=== PATIENT | female | born 1965 | race Caucasian/White ===

== ENCOUNTER → 2018-11-11 12:01 | Outpatient (CLI) | payer MEDICARE, OTHER, SELFPAY ==
--- NOTE | 2018-11-11 12:07 | DI.RAD.S_ITS ---
PROCEDURE: XR CERVICAL SPINE 4V OR 5V INDICATIONS: chronic neck pain TECHNIQUE: 5 views of the cervical spine acquired. COMPARISON: None. FINDINGS: Bones: No fractures or dislocations to the C7 level. Diffuse endplate spurring and sclerosis. Mild narrowing of the C4-C5, C5-C6 disc spaces. On the right there is moderate C4-C5 bony foraminal narrowing. On the left no bony foraminal stenosis Soft tissues: Bilateral carotid calcifications IMPRESSION: Mild midcervical degeneration and diffuse facet arthropathy. Moderate right C4-C5 bony foraminal stenosis Bilateral carotid atherosclerosis. Dictated by: Kye Armas M.D. on 11/11/2018 at 13:12 Approved by: Kye Armas M.D. on 11/11/2018 at 13:13
--- NOTE | 2018-11-11 12:25 | DI.CT.S_ITS ---
PROCEDURE: CT CERVICAL SPINE WO CON INDICATIONS: chronic cervical pain TECHNIQUE: Noncontrast 3 mm thick sections acquired from the skull base to the T4 level. Sagittal and coronal reformats were then constructed. For radiation dose reduction, the following was used: automated exposure control, adjustment of mA and/or kV according to patient size. COMPARISON: None. FINDINGS: Image quality: Excellent. Bones: No fractures or dislocations. Visualized superior ribs are intact. Straightening of the normal cervical lordosis. There is endplate spurring which is most pronounced at C5-C6 and C6-C7. Mild narrowing of C5-C6 and C6-C7 disc spaces. Soft tissues: Prevertebral soft tissues are normal in thickness. No paravertebral hematomas. No apical pneumothoraces. Status post left mastoidectomy IMPRESSION: Straightening of the normal cervical lordosis and mild mid to lower cervical disc degeneration primarily from C5-C7. Dictated by: Kye Armas M.D. on 11/11/2018 at 15:08 Approved by: Kye Armas M.D. on 11/11/2018 at 15:11
== END ==
PROVIDERS: PCP Family Medicine; Visit Provider Physical Medicine & Rehabilitation
DX: M50.122 Cervical disc disorder at C5-C6 level with radiculopathy (principal); G89.29 Other chronic pain; Z95.0 Presence of cardiac pacemaker
CPT/HCPCS: 72050; 72125

== ENCOUNTER → 2019-02-21 13:28 | Outpatient (CLI) | payer MEDICARE, OTHER, SELFPAY ==
--- NOTE | 2019-02-21 13:32 | DI.RAD.S_ITS ---
PROCEDURE: XR THORACIC SPINE 2V INDICATIONS: Eval TECHNIQUE: A 2 views of the thoracic spine were acquired. COMPARISON: [facility], CR, XR CERVICAL SPINE 4V OR 5V, 11/11/2018, 12:27. [facility], CT, CT CERVICAL SPINE WO CON, 11/11/2018, 12:11. FINDINGS: Bones: No fractures or dislocations. What appears to be vertebroplasty/kyphoplasty bone cement overlies the T3 and T4 vertebral body segments No suspicious bony lesions. 12 pairs of ribs are noted, and appear intact where visualized. Soft tissues: No paravertebral stripe thickening. IMPRESSION: Apparent prior vertebroplasty/kyphoplasty bone cement placement at the T3 and T4 levels of the thoracic spine. No compression fracture or subluxation is associated. Dictated by: Nikita Argueta M.D. on 02/21/2019 at 14:20 Approved by: Nikita Argueta M.D. on 02/21/2019 at 14:23
== END ==
PROVIDERS: PCP Family Medicine; Visit Provider Physical Medicine & Rehabilitation
DX: S22.049A Unspecified fracture of fourth thoracic vertebra, initial encounter for closed fracture (principal); S22.039A Unspecified fracture of third thoracic vertebra, initial encounter for closed fracture
CPT/HCPCS: 72070; 99214

== ENCOUNTER 2019-03-08 11:17 | Outpatient (CLI) | payer MEDICARE, OTHER, SELFPAY ==
[2019-03-08] VITALS (9 sets, daily range): BP systolic 102–118; BP diastolic 57–75; PULSE 58–73; RESP 16–18; TEMP 36.1; O2SAT 98–100
--- NOTE | 2019-03-08 11:20 | DI.RAD.S_ITS ---
PROCEDURE: PAIN C/T INTERLAMINAR INJECT INDICATIONS: RADICULOPATHY FINDINGS: Fluoroscopic spot filming was performed to verify placement of spinal needles at the T4-T5 level(s), as labeled on the films. Appropriate location(s) of the needle tip(s) was confirmed by injection of iodinated contrast. Dictated by: Kye Armas M.D. on 03/08/2019 at 13:27 Approved by: Kye Armas M.D. on 03/08/2019 at 13:28
[2019-03-08] MEDS: fentaNYL 100 MCG/2 ML INJ 50 MCG IV (12:17)
[2019-03-08] MEDS: MIDAZOLAM 5 MG/5 ML VIAL IV (12:17)
[2019-03-08] MEDS: LIDOCAINE 1% 20 ML INJ 5 ML INJ (12:25)
[2019-03-08] MEDS: DEXAMETHASONE 10 MG/ML VIAL 20 MG INJ (12:26)
[2019-03-08] MEDS: IOPAMIDOL 15 ML VIAL 3 ML INJ (12:26)
--- NOTE | 2019-03-08 12:31 | PC.NURSE ---
ASSISTING PT OFF TABLE AND TRANSPORTING TO POST PROC AREA IN STABLE CONDITION
--- NOTE | 2019-03-08 12:40 | P.PCN_ITS ---
Procedures Date/Time Date of procedure: 03/08/19 Time of procedure: 12:37 General Procedure description: Preop diagnosis: Thoracic stenosis with HNP Postprocedure diagnosis: Thoracic stenosis with HNP Physician: Darian Washburn D.O. Indications: Amanda is referred by for treatment of thoracic DDD/DJD with radiculopathy Description of procedure: Fluoroscopic guided, contrast controlled T4/5 translaminar epidural steroid inj ection with conscious sedation. Following denial of allergy review potential side effects and complications, including, but not necessarily limited to, infection, allergic reaction, local tissue breakdown, temporary as well as permanent nerve injury, stroke, paralysis and possible , the patient indicated that they understood and agreed to proceed. An informed consent document was signed by the patient, witnessed by the nurse, and placed in the patient's chart. Additionally other treatment options including modalities, medications and physical therapy were reviewed with the patient. After review of previous anaesthesic history and IV conscious sedation the patient was deemed safe to proceed with todays procedure with IV conscious sedation as ASA class II designation. Safety time-out was performed to confirm patient ID, procedure to be performed and site of procedure. IV sedation was accomplished with a combination of 3mg of Versed administered by the RN after DO order, titrated to patient comfort during the course of the procedure while the patient remained responsive to all verbal commands In the prone position, following sterile prep and drape of the thoracic region the T4/5 translaminar space was identified fluoroscopically. The skin was anesthetized via 25 gauge 20 mm sheath with 1% lidocaine solution. At this point a 20 gauge epidural needle was atraumatically introduced and advanced under fluoroscopic guidance into the region of the T8-9 translaminar space depth was confirmed on lateral view. Radiographic data, including multiple fluoroscopic views of the thoracic spine, reveals spinal needle at the T4/5 translaminar space. Lateral views then showed the placement of the needle in the epidural space. Subsequent view show contrast material flowing superiorly and inferiorly in the epidural space. No vascular or intrathecal uptake is observed. At this point using loss of resistance technique with saline and the epidural space was entered. This was confirmed followed negative aspiration and injection of approximately 1.5 cc of Isovue 200 showed excellent epidural flow without vascular or intrathecal uptake. At this point, 1 cc of 1% lidocaine s olution was admitted as a test dose and the patient was observed for an appropriate period of time without signs or symptoms of complications, including abdominal pain, shortness of breath, bilateral upper and lower extremity weakness, nausea and vomiting, prior to steroid injection. Subsequently, 2cc or 20mg of dexamethasone was then injected without incident. The patient tolerated the procedure well without signs of complications and subsequently was transferred to the recovery room for further monitoring. The patient was then transferred to the recovery area with their observed for an appropriate time after the injection. Patient reported a VAS score of 7 prior to the procedure and postprocedure VAS of 2. Total fluoroscopy time: 56.3 sec Total conscious sedation time: 24 min Darian Washburn D.O. Complications: none
--- NOTE | 2019-03-08 13:55 | PC.NURSE ---
Pt returned from procedure via wheelchair awake and alert, able to move from w/c to chair with standby assist. Resumed monitoring from Yun SAUCEDO.
== END 2019-03-08 13:10 ==
PROVIDERS: PCP Family Medicine; Visit Provider Physical Medicine & Rehabilitation
DX: M48.04 Spinal stenosis, thoracic region (principal); M51.14 Intervertebral disc disorders with radiculopathy, thoracic region
CPT/HCPCS: 62321; 99152; J1100; J2250; J3010

== ENCOUNTER 2019-03-31 08:16 | Outpatient (CLI) | payer MEDICARE, OTHER, SELFPAY ==
[2019-03-31] VITALS (9 sets, daily range): BP systolic 96–114; BP diastolic 60–71; PULSE 56–87; RESP 16–18; TEMP 36.1; O2SAT 96–100
--- NOTE | 2019-03-31 08:19 | DI.RAD.S_ITS ---
PROCEDURE: PAIN C/T FACET INJ/BLK 1ST L INDICATIONS: [id number] FINDINGS: Fluoroscopic spot filming was performed to verify placement of spinal needles at the right C4-C5, C5-C6 and C6-C7 level(s), as labeled on the films. Appropriate location(s) of the needle tip(s) was confirmed by injection of iodinated contrast. IMPRESSION: Fluoroscopy for pain management. Dictated by: Mayda Moser M.D. on 03/31/2019 at 15:23 Approved by: Mayda Moser M.D. on 03/31/2019 at 15:23
[2019-03-31] MEDS: fentaNYL 100 MCG/2 ML INJ 50 MCG IV (09:23)
[2019-03-31] MEDS: MIDAZOLAM 5 MG/5 ML VIAL IV (09:23)
[2019-03-31] MEDS: LIDOCAINE 1% 20 ML INJ 5 ML INJ (09:32)
[2019-03-31] MEDS: IOPAMIDOL 15 ML VIAL 3 ML INJ (09:32)
[2019-03-31] MEDS: BUPIVACAINE 0.5% (PF) VIAL 2 ML INJ (09:33)
[2019-03-31] MEDS: DEXAMETHASONE 10 MG/ML VIAL 30 MG INJ (09:33)
--- NOTE | 2019-03-31 09:41 | P.PCN_ITS ---
Procedures Date/Time Date of procedure: 03/31/19 Time of procedure: 09:40 General Procedure description: PREOP DIAGNOSIS 1. FACET ARTHROPATHY 2. AXIAL NECK PAIN POST OP DIAGNOSIS 1. FACET ARTHROPATHY 2. AXIAL NECK PAIN PROCEDURES 1. FLUOROSCOPICALLY GUIDED, CONTRAST-CONTROLLED RIGHT C4/5, C5/6 AND C6/7 FACET JOINT INJECTIONS WITH CONSCIOUS SEDATION. PHYSICIAN: Darian Washburn, INDICATIONS Amanda is referred by Dr. Toth for treatment of Axial Neck Pain DESCRIPTION OF PROCEDURE Fluoroscopically guided, contrast-controlled right C4/5, C5/6 and C6/7 facet joint injections with conscious sedation. Following denial of allergy and review of potential side effects and complications, including, but not necessarily limited to, infection, allergic reaction, local tissue breakdown, stroke, temporary or permanent nerve injury and paralysis, the patient indicated that the patient understood and agreed to proceed. An informed consent document was signed by the patient, witnessed by a nurse, and placed in the patient's chart. Additionally, other treatment options including medications, modalities, and physical therapy were reviewed with the patient. After review of previous anaesthesic history and IV conscious sedation the patient was deemed safe to proceed with todays procedure with IV conscious sedation as ASA class II designation. Safety time-out was performed to confirm patient ID, procedure to be performed and site of procedure. IV sedation was accomplished with a combination of 3mg of Versed and 50mcg of Fentanyl was administered by the RN after DO order, titrated to patient comfort during the course of the procedure while the patient remained responsive to all verbal commands In the prone position, following sterile prep and drape of the cervical spine region, the posterior aspect of the right C4/5, C5/6 and C6/7 facet joints were identified fluoroscopically. The skin was anesthetized via a 25-gauge 1.5-inch needle with 1% lidocaine solution into the corresponding facet joints. At this point, a 25-gauge 2.5-inch spinal needle was atraumatically introduced and advanced under fluoroscopic guidance into the corresponding facet joints. Following negative aspiration, injections of approximately 0.2-cc of Isovue 200 confirmed interarticular placement without vascular uptake. At this point, a total of 1 cc including 0.5 cc or 5mg of dexamethasone combined with 0.5 cc of 1% lidocaine solution was injected without complication into each of the corresponding facet joints. The procedure tolerated the procedure well without signs or symptoms of complications prior to transfer to the recovery area continued monitoring without incident. The patient was then transferred to the recovery area where they were observed for an appropriate period of time after the injection. The patient reported a VAS score of 7 prior to the procedure and a post- procedure VAS of 0. Total Fluoroscopy Time: 20.5 seconds Total Conscious Sedation Time: 24 min POST OP INSTRUCTIONS They were provided a Pain Log to continue to record their response to the target-specific procedure prior to their follow-up visit with their referring physician. Additionally, specific post-injection care instructions and a contact number to our office were provided if concerns arise regarding possible complications associated with the procedure are suspected. Darian Washburn, Complications: none
--- NOTE | 2019-03-31 09:44 | PC.NURSE ---
pt returned from procedure awake and alert, able to move from w/c to chair with standby assist. Resumed monitoring from Yun SAUCEDO.
== END 2019-03-31 10:11 | disposition home or self-care (01) ==
LOC: RAD 08:18
PROVIDERS: PCP Family Medicine; Visit Provider Physical Medicine & Rehabilitation
DX: M47.812 Spondylosis without myelopathy or radiculopathy, cervical region (principal); M54.2 Cervicalgia
CPT/HCPCS: 64490; 64491; 64492; 99152; J1100; J2250; J3010

== ENCOUNTER 2019-06-16 11:52 | Outpatient (CLI) | payer MEDICARE, OTHER, SELFPAY ==
[2019-06-16] VITALS (8 sets, daily range): BP systolic 99–119; BP diastolic 63–83; PULSE 61–82; RESP 16–18; TEMP 36.2; O2SAT 98–100
--- NOTE | 2019-06-16 11:56 | DI.RAD.S_ITS ---
PROCEDURE: PAIN C/T FACET INJ/BLK 1ST L INDICATIONS: SPONDYLOSIS FINDINGS: Fluoroscopic spot filming was performed to verify placement of spinal needles at the C3-4, T4-T5 right sided facet joint areas level(s), as labeled on the films. Appropriate location(s) of the needle tip(s) was confirmed by injection of iodinated contrast. IMPRESSION: Unilateral right-sided facet joint injections at T3-4 and T4-5. Dictated by: Nikita Argueta M.D. on 06/20/2019 at 15:41 Approved by: Nikita Argueta M.D. on 06/20/2019 at 15:42
[2019-06-16] MEDS: MIDAZOLAM 5 MG/5 ML VIAL IV (13:38)
[2019-06-16] MEDS: fentaNYL 100 MCG/2 ML INJ 50 MCG IV (13:38)
--- NOTE | 2019-06-16 13:40 | P.PCN_ITS ---
Procedures Date/Time Date of procedure: 06/16/19 Time of procedure: 13:36 General Procedure description: PREOP DIAGNOSIS 1. FACET ARTHROPATHY, 2. AXIAL LBP, 3. MULTILEVEL DDD, POST OP DIAGNOSIS 1. FACET ARTHROPATHY, 2. AXIAL LBP, 3. MULTILEVEL DDD, PROCEDURES 1. FLUORSCOPICALLY GUIDED CONTRAST CONTROLLED FACET JOINT INJECTIONS RIGHT L3/4, L4/5 SURGEON: Darian Washburn, DO INDICATIONS Amanda is referred by Dr. Toth for treatment of Axial LBP FINDINGS Multilevel Facet Arthropathy with Clinically significant axial LBP DESCRIPTION OF PROCEDURE Fluoroscopically guided, contrast-controlled right T3/4, T4/5 facet joint i njections. Following review of allergy and review of potential side effects and complications, including, but not necessarily limited to, infection, allergic reaction, local tissue breakdown, stroke, temporary or permanent nerve injury, paralysis, and possible , the patient indicated that the patient understood and agreed to proceed. An informed consent document was signed by the patient, witnessed by a nurse, and placed in the patient's chart. Additionally, other treatment options including medications, modalities, and physical therapy were reviewed with the patient. After review of previous anaesthesic history and IV conscious sedation the patient was deemed safe to proceed with todays procedure with IV conscious sedation as ASA class II designation. Safety time-out was performed to confirm patient ID, procedure to be performed and site of procedure. IV sedation was accomplished with a combination of 2mg of Versed and 50mcg of Fentanyl administered by the RN after DO order, titrated to patient comfort during the course of the procedure while the patient remained responsive to all verbal commands. In the prone position, following sterile prep and drape of the lumbar region, the posterior aspect of the right T3/4, T4/5 facet joints were identified fluoroscopically. The skin was anesthetized via a 25-gauge 1.5-inch needle with 1% lidocaine solution into the corresponding facet joints. At this point, a 22-gauge 3.5-inch spinal needle was atraumatically introduced and advanced under fluoroscopic guidance into the corresponding facet joints. Following negative aspiration, injections of approximately 0.2-cc of Isovue 200 confirmed interarticular placement without vascular uptake. Radiological data, including multiple fluoroscopic views of the lumbosacral s pine, reveal a spinal needle at the right T3/4, T4/5 facet joints. Subsequent views show flow of contrast material both superiorly and inferiorly within the joint space without vascular or intrathecal uptake. At this point, a total of 0.cc including a mixture of 0.25cc Marcaine and 0.25cc betamethasone was injected without complication into each of the corresponding facet joints. The patient tolerated the procedure well without signs or symptoms of complications prior to transfer to the recovery area for further monitoring. The patient was then transferred to the recovery area where they were observed for an appropriate period of time after the injection. The patient reported a VAS score of 7 prior to the procedure and a post-procedure VAS of 0. Total Fluoroscopy Time: 12.7 seconds Total Conscious Sedation Time: 24min POST OP INSTRUCTIONS The patient was provided a Pain Log to continue to record their response to the target-specific procedure prior to follow-up visit with their referring physician. Additionally, specific post-injection care instructions and a contact number to our office were provided if concerns arise regarding possible complications associated with the procedure are suspected Complications: none
[2019-06-16] MEDS: LIDOCAINE 1% 20 ML 10 ML INJ (13:45)
[2019-06-16] MEDS: BUPIVACAINE 0.5% (PF) VIAL 5 ML INJ (13:45)
[2019-06-16] MEDS: IOPAMIDOL 15 ML VIAL 3 ML INJ (13:45)
[2019-06-16] MEDS: DEXAMETHASONE 10 MG/ML VIAL 20 MG INJ (13:46)
[2019-06-16] MEDS: DEXAMETHASONE 10 MG/ML VIAL INJ (13:46)
--- NOTE | 2019-06-16 13:58 | PC.NURSE ---
Pt tolerated procedure well. Pt able to get off the table with standby assist. Transferred pt to pre procedure room via wheelchair for continued monitoring with Yun SAUCEDO.
--- NOTE | 2019-06-16 14:06 | PC.NURSE ---
ACCEPTED CARE OF PT IN POST PROC AREA IN STABLE CONDITION
--- NOTE | 2019-06-16 14:39 | PM.PROC.1 ---
Procedures Date/Time Date of procedure: 06/16/19 Time of procedure: 14:39
== END 2019-06-16 14:34 | disposition home or self-care (01) ==
LOC: RAD 11:55
PROVIDERS: PCP Family Medicine; Visit Provider Physical Medicine & Rehabilitation
DX: M47.814 Spondylosis without myelopathy or radiculopathy, thoracic region (principal)
CPT/HCPCS: 64490; 99152; J1100; J2250; J3010

== ENCOUNTER 2019-09-27 06:42 | Outpatient (CLI) | payer MEDICARE, OTHER, SELFPAY ==
[2019-09-27] VITALS (8 sets, daily range): BP systolic 95–120; BP diastolic 69–79; PULSE 65–74; RESP 16; TEMP 36.2; O2SAT 95–99
--- NOTE | 2019-09-27 06:45 | DI.RAD.S_ITS ---
PROCEDURE: PAIN C/T FACET INJ/BLK 1ST L INDICATIONS: SPONDYLOSIS FINDINGS: Fluoroscopic spot filming was performed to verify placement of spinal needles at the right T3-T4, and T4-T5 facet regions for steroid injection level(s), as labeled on the films. Appropriate location(s) of the needle tip(s) was confirmed by injection of iodinated contrast. IMPRESSION: Successful facet joint localization at the right side of the thoracic spine for steroid injection. Dictated by: Nikita Argueta M.D. on 09/27/2019 at 10:21 Approved by: Nikita Argueta M.D. on 09/27/2019 at 10:21
[2019-09-27] MEDS: fentaNYL 100 MCG/2 ML INJ 50 MCG IV (08:10)
[2019-09-27] MEDS: MIDAZOLAM 5 MG/5 ML VIAL IV (08:10)
[2019-09-27] MEDS: DEXAMETHASONE 10 MG/ML VIAL INJ (08:20)
[2019-09-27] MEDS: LIDOCAINE 1% 20 ML 10 ML INJ (08:20)
[2019-09-27] MEDS: IOPAMIDOL 15 ML VIAL 3 ML INJ (08:20)
[2019-09-27] MEDS: methylPREDNISolone acetate 80 MG/ML VIAL INJ (08:20)
[2019-09-27] MEDS: BUPIVACAINE 0.5% (PF) VIAL 2 ML INJ (08:20)
--- NOTE | 2019-09-27 08:22 | PC.NURSE ---
ASSISTING PT OFF TABLE AND TRANSPORTING TO POST PROC AREA IN STABLE CONDITION. PASSING PT CARE OFF TO NEVIN Petersen RN.
--- NOTE | 2019-09-27 08:27 | P.PCN_ITS ---
Procedures Date/Time Date of procedure: 09/27/19 Time of procedure: 08:27 General Procedure description: General Procedure description: PREOP DIAGNOSIS 1. FACET ARTHROPATHY, 2. AXIAL THORACIC PAIN, 3. MULTILEVEL DDD, POST OP DIAGNOSIS 1. FACET ARTHROPATHY, 2. AXIAL THORACIC PAIN, 3. MULTILEVEL DDD, PROCEDURES 1. FLUORSCOPICALLY GUIDED CONTRAST CONTROLLED FACET JOINT INJECTIONS RIGHT T3/4, T4/5 SURGEON: Darian Washburn, DO INDICATIONS Amanda is referred by Dr. Toth for treatment of Axial LBP FINDINGS Multilevel Facet Arthropathy with Clinically significant axial LBP DESCRIPTION OF PROCEDURE Fluoroscopically guided, contrast-controlled right T3/4, T4/5 facet joint injections. Following review of allergy and review of potential side effects and complications, including, but not necessarily limited to, infection, allergic reaction, local tissue breakdown, stroke, temporary or permanent nerve injury, paralysis, and possible , the patient indicated that the patient understood and agreed to proceed. An informed consent document was signed by the patient, witnessed by a nurse, and placed in the patient's chart. Additionally, other treatment options including medications, modalities, and physical therapy were reviewed with the patient. After review of previous anaesthesic history and IV conscious sedation the patient was deemed safe to proceed with todays procedure with IV conscious sedation as ASA class II designation. Safety time-out was performed to confirm patient ID, procedure to be performed and site of procedure. IV sedation was accomplished with a combination of 3mg of Versed and 50mcg of Fentanyl administered by the RN after DO order, titrated to patient comfort during the course of the procedure while the patient remained responsive to all verbal commands. In the prone position, following sterile prep and drape of the lumbar region, the posterior aspect of the right T3/4, T4/5 facet joints were identified fluoroscopically. The skin was anesthetized via a 25-gauge 1.5-inch needle with 1% lidocaine solution into the corresponding facet joints. At this point, a 22-gauge 3.5-inch spinal needle was atraumatically introduced and advanced under fluoroscopic guidance into the corresponding facet joints. Following negative aspiration, injections of approximately 0.2-cc of Isovue 200 confirmed interarticular placement without vascular uptake. Radiological data, including multiple fluoroscopic views of the lumbosacral spine, reveal a spinal needle at the right T3/4, T4/5 facet joints. Subsequent views show flow of contrast material both superiorly and inferiorly within the joint space without vascular or intrathecal uptake. At this point, a total of 0.5cc including a mixture of 0.25cc Marcaine and 0.25cc depomedrol was injected without complication into each of the co rresponding facet joints. The patient tolerated the procedure well without signs or symptoms of complications prior to transfer to the recovery area for further monitoring. The patient was then transferred to the recovery area where they were observed for an appropriate period of time after the injection. The patient reported a VAS score of 7 prior to the procedure and a post-procedure VAS of 0. Total Fluoroscopy Time: 12.7 seconds Total Conscious Sedation Time: 24min POST OP INSTRUCTIONS The patient was provided a Pain Log to continue to record their response to the target-specific procedure prior to follow-up visit with their referring physician. Additionally, specific post-injection care instructions and a contact number to our office were provided if concerns arise regarding possible complications associated with the procedure are suspected Complications: none Complications: none
--- NOTE | 2019-09-27 17:28 | PC.NURSE ---
Late entry: post procedure note- Patient arrived at 0830. Awake and alert. Hand off report received from Dior Vergara RN. Transferred to recliner from w/c with minimal assist. VSS, O2 Sats WNL on RA. Pain level 0/10. Discharged to home at 0850
== END 2019-09-27 08:50 | disposition home or self-care (01) ==
PROVIDERS: PCP Family Medicine; Visit Provider Physical Medicine & Rehabilitation
DX: M47.814 Spondylosis without myelopathy or radiculopathy, thoracic region (principal); M51.34 Other intervertebral disc degeneration, thoracic region
CPT/HCPCS: 64490; 64491; 99152; J1040; J1100; J2250; J3010

== ENCOUNTER 2020-01-02 10:09 | Outpatient (CLI) | payer MEDICARE, OTHER, SELFPAY ==
[2020-01-02] VITALS (9 sets, daily range): BP systolic 117–150; BP diastolic 69–91; PULSE 93–109; RESP 16–18; TEMP 36; O2SAT 98–100
--- NOTE | 2020-01-02 10:11 | DI.RAD.S_ITS ---
PROCEDURE: PAIN C/T FACET INJ/BLK 1ST L INDICATIONS: SPONDYLOSIS FINDINGS: Fluoroscopic spot filming was performed to verify placement of spinal needles at the T3, T4, T5 level(s), as labeled on the films. Appropriate location(s) of the needle tip(s) was confirmed by injection of iodinated contrast. Dictated by: Kye Armas M.D. on 01/02/2020 at 13:51 Approved by: Kye Armas M.D. on 01/02/2020 at 13:51
[2020-01-02] MEDS: BUPIVACAINE 0.5% (PF) VIAL 2 ML INJ (11:37)
[2020-01-02] MEDS: fentaNYL 100 MCG/2 ML INJ 50 MCG IV (11:37)
[2020-01-02] MEDS: MIDAZOLAM 5 MG/5 ML VIAL IV (11:37)
[2020-01-02] MEDS: DEXAMETHASONE 10 MG/ML VIAL 20 MG INJ (11:40)
[2020-01-02] MEDS: IOPAMIDOL 15 ML VIAL 3 ML INJ (11:40)
--- NOTE | 2020-01-02 11:41 | PC.NURSE ---
ASSISTING PT OFF TABLE AND TRANSPORTING TO POST PROC AREA IN STABLE CONDITION. PASSING RN CARE OF PT OFF TO BETO Treviño RN.
--- NOTE | 2020-01-02 11:43 | P.PCN_ITS ---
Procedures Date/Time Date of procedure: 01/02/20 Time of procedure: 11:43 General Procedure description: PREOP DIAGNOSIS 1. FACET ARTHROPATHY 2. AXIAL NECK PAIN POST OP DIAGNOSIS 1. FACET ARTHROPATHY 2. AXIAL NECK PAIN PROCEDURES 1. FLUOROSCOPICALLY GUIDED, CONTRAST-CONTROLLED RIGHT T3, T4, and T5 MBB. PHYSICIAN: Darian Washburn, DO INDICATIONS Amanda is referred by Dr. Toth for treatment of Thoracic Pain s/p Fx DESCRIPTION OF PROCEDURE Fluoroscopically guided, contrast-controlled right T3, T4, and T5 Diagnostic Medial Branch Blocks. Following review of allergy and review of potential side effects and complications, including, but not necessarily limited to, infection, allergic reaction, local tissue breakdown, stroke, temporary or permanent nerve injury and paralysis, the patient indicated that the patient understood and agreed to proceed. An informed consent document was signed by the patient, witnessed by a nurse, and placed in the patient's chart. Additionally, other treatment options including medications, modalities, and physical therapy were reviewed with the patient. After review of previous anaesthesic history and IV conscious sedation the patient was deemed safe to proceed with todays procedure with IV conscious sedation as ASA class II designation. Safety time-out was performed to confirm patient ID, procedure to be performed and site of procedure. IV sedation was accomplished with a combination of 3mg of Versed and 50mcg of Fentanyl was administered by the RN after DO order, titrated to patient comfort during the course of the procedure while the patient remained responsive to all verbal commands Time-out was taken to identify the correct patient, procedure and side prior to starting the procedure. Lying in the prone position, the patient was prepped and draped in the usual sterile fashion using Chlorhexaidine scrub and a fenestrated drape. The level was determined under fluoroscopy. The skin was anesthetized via a 25-gauge 1.5- inch needle with 1% lidocaine solution into the corresponding right T3, T4, and T5 lateral pillars. At this point, a 22-gauge short bevel spinal needle was atraumatically introduced and advanced under fluoroscopic guidance to the anatomical pillars. Following negative aspiration, injections of approximately 0.1cc of Isovue 200 confirmed interarticular placement without vascular uptake. At this point, a total of 1cc of 0.5% was injected without complication into each of the corresponding medial branch anatomical location. The patient tolerated the procedure well without signs or symptoms of complications prior to transfer to the recovery area continued monitoring without incident. The patient was then transferred to the recovery area where they were observed for an appropriate period of time after the injection. The patient reported a VAS score of 7 prior to the procedure and a post- procedure VAS of 1. Total Fluoroscopy Time: 9 seconds Total Conscious Sedation Time: 24 min POST OP INSTRUCTIONS They were provided a Pain Log to continue to record their response to the target-specific procedure prior to their follow-up visit with their referring physician. Additionally, specific post-injection care instructions and a contact number to our office were provided if concerns arise regarding possible complications associated with the procedure are suspected. Complications: none
--- NOTE | 2020-01-02 11:52 | PC.NURSE ---
1150: Received patient post procedure via WC by Yun SAUCEDO. Awake and pleasant, at side. VSS upon arrival.
--- NOTE | 2020-01-02 16:45 | PC.NURSE ---
DR RODRIGUEZ AWARE OF TACHYCARDIA AT TIME OF END OF PROCEDURE. NO NEW ORDERS. WILL CONTINUE TO MONITOR.
--- NOTE | 2020-01-03 12:11 | PC.NURSE ---
FOLLOW UP CALL MADE. PT STATED I'M FINE. DENIED QUESTIONS/CONCERNS. REMINDED PT TO CONTINUE WITH PAIN LOG AND OF CLINIC NUMBER OF BACK IF SHE NEEDS TO CONTACT US BEFORE HER FOLLOW UP. PT VERBALIZED UNDERSTANDING.
== END 2020-01-02 12:05 | disposition home or self-care (01) ==
LOC: RAD 10:11
PROVIDERS: PCP Family Medicine; Referring Provider Physical Medicine & Rehabilitation; Visit Provider Physical Medicine & Rehabilitation
DX: M47.814 Spondylosis without myelopathy or radiculopathy, thoracic region (principal); M54.6 Pain in thoracic spine; M54.2 Cervicalgia
CPT/HCPCS: 64490; 64491; 99152; J1100; J2250; J3010

== ENCOUNTER → 2020-09-06 15:49 | Outpatient (CLI) | payer MEDICARE, OTHER, SELFPAY ==
[2020-09-06 16:32] LABS: Add Manual Diff / Slide Review NO; Basophils Absolute Auto 100 /uL (0-100); Eosinophils Absolute Auto 100 /uL (0-450); Hematocrit 38.3 % (36-46); Hemoglobin 12.7 g/dL (12.0-16.0); Lymphocytes Absolute Auto 2800 /uL (1100-4500); Mean Corpuscular HGB Conc 33.1 % (30-36); Mean Corpuscular Hemoglobin 28.8 PG (26-34); Mean Corpuscular Volume 87.1 fL (80-100); Monocytes Absolute Auto 600 /uL (0-900); Monocytes Percent Auto 7.2 % (3-14); Neutrophils Absolute Auto 5200 /uL (1500-7000); Neutrophils Percent Auto 58.8 % (50-75); Platelet Count 219 X10^3/uL (150-400); Red Cell Distribution Width 14.1 % (11.6-14.8); White Blood Cell Count 8.8 X10^3/uL (4.5-11.0)
[2020-09-06 17:01] LABS: BUN Creatinine Ratio 23.6 (6-22); Blood Urea Nitrogen 21 mg/dL (7-17); Calcium 9.6 mg/dL (8.4-10.2); Carbon Dioxide 27 mmol/L (22-32); Chloride 108 mmol/L (98-107); Cholesterol 147 mg/dL (140-199); Estimated Glomerular Filt Rate > 60.0 mL/min (>60); Glucose 108 mg/dL (70-100); HDL Cholesterol 57 mg/dL (40-60); HEMOLYSIS < 15 (0-50); LDL Cholesterol Calculated 61 mg/dL (<100); Potassium 3.9 mmol/L (3.4-5.1); Sodium 139 mmol/L (137-145); Triglycerides 145 mg/dL (35-150)
== END ==
PROVIDERS: PCP Family Medicine; Referring Provider Internal Medicine Cardiovascular Disease; Visit Provider Internal Medicine Cardiovascular Disease
DX: I47.1 Supraventricular tachycardia (principal); E78.5 Hyperlipidemia, unspecified
CPT/HCPCS: 36415; 80048; 80061; 85025

== ENCOUNTER → 2020-11-23 11:02 | Outpatient (CLI) | payer MEDICARE, OTHER, SELFPAY ==
--- NOTE | 2020-11-23 11:06 | DI.RAD.S_ITS ---
PROCEDURE: XR THORACIC SPINE 3V INDICATIONS: updating imaging TECHNIQUE: 3 views of the thoracic spine were acquired. COMPARISON: [facility], CR, XR THORACIC SPINE 2V, 02/21/2019, 13:37. FINDINGS: Bones: No fractures or dislocations. No suspicious bony lesions. 12 pairs of ribs are noted, and appear intact where visualized. Mild multilevel disc degeneration, most notably involving the lower cervical spine. Prior kyphoplasty at the T3 and T4 levels redemonstrated. Soft tissues: No paravertebral stripe thickening. Right cardiac pacer again noted. Cholecystectomy clips. IMPRESSION: 1. Multilevel disc degeneration, most notably involving the lower cervical spine. 2. Prior kyphoplasty at the T3-T4 level. Dictated by: Seymour Zapata [facility] Interpreted: Angel Calle MD on 11/23/2020 at 11:32 Approved by: Angel Calle M.D. on 11/23/2020 at 12:08
== END ==
PROVIDERS: PCP Family Medicine; Referring Provider Physical Medicine & Rehabilitation; Visit Provider Physical Medicine & Rehabilitation
DX: M47.814 Spondylosis without myelopathy or radiculopathy, thoracic region (principal); M50.323 Other cervical disc degeneration at C6-C7 level
CPT/HCPCS: 72072

== ENCOUNTER → 2020-12-11 12:09 | Outpatient (CLI) | payer MEDICARE, OTHER, SELFPAY ==
[2020-12-11 14:44] LABS: COVID19 -Nasal RAPID Negative (Negative)
== END ==
PROVIDERS: PCP Family Medicine; Visit Provider Physical Medicine & Rehabilitation
DX: Z20.822 Contact with and (suspected) exposure to COVID-19 (principal)
CPT/HCPCS: 87635; C9803

== ENCOUNTER 2020-12-13 10:03 | Outpatient (CLI) | payer MEDICARE, OTHER, SELFPAY ==
[2020-12-13] VITALS (8 sets, daily range): BP systolic 102–129; BP diastolic 55–71; PULSE 69–80; RESP 12–22; TEMP 37.3; O2SAT 98–100
--- NOTE | 2020-12-13 10:05 | DI.RAD.S_ITS ---
PROCEDURE: PAIN C/T FACET INJ/BLK 1ST L INDICATIONS: SPONDYLOSIS COMPARISON: [facility], , PAIN C/T FACET INJ/BLK 1ST L, 01/02/2020, 10:34. FINDINGS: Fluoroscopic spot filming was performed to verify placement of spinal needles at the T3, T4, and T5 level(s), as labeled on the films. Appropriate location(s) of the needle tip(s) was confirmed by injection of iodinated contrast. IMPRESSION: Intraprocedural examination within normal limits. Dictated by: Beltran Beard M.D. on 12/13/2020 at 12:33 Approved by: Beltran Beard M.D. on 12/13/2020 at 12:33
[2020-12-13] MEDS: MIDAZOLAM 5 MG/5 ML VIAL IV (10:52)
[2020-12-13] MEDS: fentaNYL 100 MCG/2 ML INJ 50 MCG IV (10:52)
[2020-12-13] MEDS: BUPIVACAINE 0.5% (PF) VIAL 5 ML INJ (10:56)
[2020-12-13] MEDS: LIDOCAINE 1% 20 ML 5 ML INJ (10:56)
[2020-12-13] MEDS: IOPAMIDOL 15 ML VIAL 3 ML INJ (10:56)
--- NOTE | 2020-12-13 11:09 | PM.PROC.IR.1 ---
Date/Time/Diagnoses Date of procedure: 12/13/20 Time of procedure: 11:10 Pre-procedure diagnosis: 1. FACET ARTHROPATHY Post-procedure diagnosis: same Procedure Notes Procedure: 1. Right T3, T4 and T5 MB BLOCKS Indications: Amanda is referred by Joan for treatment of Right Thoracic Back Pain s/p Kyphoplasty. Physician: Darian Washburn Total Fluoroscopy time (seconds): 10 Total sedation minutes: 12 Complications: none Procedure in detail & Post-procedure care: DESCRIPTION OF PROCEDURE Fluoroscopically guided, contrast-controlled right T3, T4 and T5 medial branch blocks with 0.5cc of 0.5% Marcaine. Following review of allergy and review of potential side effects and complications, including, but not necessarily limited to, infection, allergic reaction, local tissue breakdown, nerve injury, paralysis, stroke and possible , the patient indicated that the patient understood and agreed to proceed. An informed consent document was signed by the patient, witnessed by a nurse, and placed in the patient's chart. After review of previous anaesthesic history and IV conscious sedation the patient was deemed safe to proceed with today?s procedure with IV conscious sedation as ASA class II designation. Safety time-out was performed to confirm patient ID, procedure to be performed and site of procedure. IV sedation was accomplished with a combination of 3mg of Versed and 50mcg of Fentanyl was administered by the RN after DO order, titrated to patient comfort during the course of the procedure while the patient remained responsive to all verbal commands In the prone position, following sterile prep and drape of the lumbar region, the right T3, T4 and T5 anatomical location of the medial branch of the dorsal ramus was identified fluoroscopically. Subsequently an anesthetic skin wheal using 1% lidocaine solution was initiated at each of the anatomical spots. Subsequently then a 22-gauge 3.5-inch spinal needle was atraumatically introduced and advanced under fluoroscopic guidance at each of the corresponding sites at the right T3, T4 and T5 MB. After negative aspiration, 0.2 cc of Isovue 200 was injected, confirming placement without vascular or intrathecal uptake. Subsequently, then 0.5cc of 0.5% Marcaine solution was injected at each of the corresponding sites at the right T3, T4 and T5 medial branch locations. The patient tolerated the procedure well without signs or symptoms of complications. The procedure tolerated the procedure well without signs or symptoms of complications prior to transfer to the recovery area continued monitoring without incident. Post-procedure, the patient was monitored initiating provocative activities to measure the amount of relief from block of the facetogenic pain. The patient reported a VAS of 7 prior to the procedure and a post-procedure VAS of 1. It has been a pleasure to assist in the diagnostic and therapeutic care of your patient. POST OP INSTRUCTIONS The patient was provided with a Pain Log to complete over the next several hours and subsequent days prior to the patient's follow up with the ordering physician. If the patient has digital publishing specialist relief to the solution applied, then they may be a candidate for medial branch rhizotomy. The patient is aware, was provided, once again, with a Pain Log and will follow up with the referring physician for review and clinical correlation.
== END 2020-12-13 11:30 | disposition home or self-care (01) ==
LOC: RAD 10:05
PROVIDERS: PCP Family Medicine; Referring Provider Physical Medicine & Rehabilitation; Visit Provider Physical Medicine & Rehabilitation
DX: M47.814 Spondylosis without myelopathy or radiculopathy, thoracic region (principal); M54.6 Pain in thoracic spine
CPT/HCPCS: 64490; 64491; 64492; 99152; J2250; J3010